=== PATIENT | male | born 1960 | race Two or more races ===

== ENCOUNTER 2022-09-16 09:46 | Outpatient (CLI) | payer OTHER | END 2022-09-16 09:57 | disposition home or self-care (01) | LOC: SONOGRAMA 09:46 | PROVIDERS: ATTEND Specialist | DX: K40.90 Unilateral inguinal hernia, without obstruction or gangrene, not specified as recurrent (principal) ==

== ENCOUNTER 2022-10-01 04:47 | Day surgery (SDC) | payer OTHER ==
[~2022-10-01] VITALS: Ht 160 cm; Wt 69.4 kg
[~2022-10-01 04:47] MED LIST: AMBIEN10 MG PO; CANDESARTAN-HC1 EAC2 PO; CARVEDILOL25 MG; LIPITOR40 MG PO; METFORMIN HCL1000 M2 PO; MYSOLINE50 MG PO; PACERONE200 MG PO; PLAVIX75 MG PO
== END 2022-10-01 18:15 | disposition home or self-care (01) ==
LOC: CIR.AMB 04:47
PROVIDERS: ATTEND Specialist
DX: K40.90 Unilateral inguinal hernia, without obstruction or gangrene, not specified as recurrent (principal); Z20.822 Contact with and (suspected) exposure to COVID-19; I10 Essential (primary) hypertension; F17.210 Nicotine dependence, cigarettes, uncomplicated; E11.9 Type 2 diabetes mellitus without complications

== ENCOUNTER 2022-12-10 05:40 | Day surgery (SDC) | payer OTHER ==
[~2022-12-10] VITALS: Ht 180.3 cm; Wt 74.8 kg
[~2022-12-10 05:40] MED LIST changes: +ADULT LOW DOSE81 M1 PO; +VALIUM PO
== END 2022-12-10 19:45 | disposition home or self-care (01) ==
LOC: CIR.AMB 05:40
PROVIDERS: ATTEND Specialist
DX: K40.90 Unilateral inguinal hernia, without obstruction or gangrene, not specified as recurrent (principal); I10 Essential (primary) hypertension; Z20.822 Contact with and (suspected) exposure to COVID-19
CPT/HCPCS: 49505; C1781